=== PATIENT | male | born 1965 | race Caucasian/White ===

== ENCOUNTER 2022-12-19 09:09 | Outpatient (CLI) | payer BC, SELFPAY ==
[2022-12-19 12:42] LABS: Albumin* 4.3 g/dL (3.3-5.0)
[2022-12-19 12:43] LABS: Chloride* 102 mmol/L (96-114); Potassium* 4.6 mmol/L (3.6-5.1); Sodium* 137 mmol/L (135-149)
[2022-12-19 12:45] LABS: Aspartate Amino Transferase* 34 U/L (12-35); Bilirubin Total* 0.9 mg/dL (0.1-1.5); Carbon Dioxide* 29 mmol/L (20-32); Cholesterol* 156 mg/dL (90-199); Creatinine* 1.1 mg/dL (0.5-1.5); Estimated Glomerular Filt Rate 79 ml/min; Total Protein* 7.3 g/dL (6.0-8.3)
[2022-12-19 12:46] LABS: Alanine Aminotransferase* 39 U/L (4-50); Alkaline Phosphatase* 63 U/L (40-150); Blood Urea Nitrogen* 17 mg/dL (7-30); Calcium* 9.1 mg/dL (8.4-10.6); Glucose* 99 mg/dL (60-115); HDL Cholesterol* 70 mg/dL (>=40); LDL Cholesterol Calculated 78 mg/dL (<100); Triglycerides* 41 mg/dL (40-149)
[2022-12-19 13:16] LABS: PSA Screen* 0.92 ng/mL (0.10-4.00)
== END 2022-12-19 09:10 | disposition home or self-care (01) ==
PROVIDERS: PCP Physician Assistant Medical; Visit Provider Physician Assistant Medical
DX: Z00.00 Encounter for general adult medical examination without abnormal findings (principal); E78.2 Mixed hyperlipidemia; N40.1 Benign prostatic hyperplasia with lower urinary tract symptoms; N52.1 Erectile dysfunction due to diseases classified elsewhere; R35.1 Nocturia; E78.5 Hyperlipidemia, unspecified; Z12.5 Encounter for screening for malignant neoplasm of prostate
CPT/HCPCS: 80053; 80061; 84153

== ENCOUNTER 2023-12-23 09:09 | Outpatient (CLI) | payer BC, SELFPAY | END 2023-12-23 09:10 | disposition home or self-care (01) | PROVIDERS: PCP Physician Assistant Medical; Visit Provider Family Medicine | DX: E78.2 Mixed hyperlipidemia (principal); Z12.5 Encounter for screening for malignant neoplasm of prostate | CPT/HCPCS: 80053; 80061; G0103 ==

== ENCOUNTER 2025-04-20 08:01 | Outpatient (CLI) | payer BC, SELFPAY ==
--- OUTSIDE RECORDS SUMMARY | 2024-06-23 05:05 | XMS_ITS | Continuity of Care Document ---
Author Organization [facility] Address [address] [address] [place] [address] Phone Care Team Providers Care Hand Riveter Name Role Phone Teja Calderón MD, Reinier Unavailable Unavailabl e Allergies, Adverse Reactions, Alerts Substance Reaction Status Criticality No Known Allergies Active No Inform ation Medications Medication Instructions Dosage Effective Dates (start - stop) Status Comments Vazalore 81 mg capsule take 1 capsule by oral route every day 81 MG - Active omeprazole 20 mg capsule,delayed release take 1 capsule by oral route every day 30 minutes to 1 hour before a meal 20 MG - Active rosuvastatin 5 mg tablet take 1 tablet by oral route every day 5 MG - Active tadalafil 5 mg tablet take 3 tablet by o ral route every day as needed 15 MG - Active Procedures Procedure Date Colonoscopy Flex; Dx (sep Pro) 24 Ugi Endo; Dx W/wo Collec Specm 24 Office Cons New/estab Mod Routine Serum Collection Advance Directives Directive Yes / No Effective Date File Name No Information Encounters Encounter Description Practice Location Reason(s) For Visit Diagnoses Date Provider Providers Copied on Encounter [facility], [address] [address], [place], [id number], [place] tel:[phone] [facility] No Information 4 Teja Hills. [address], [place], [place], [id number] , [place]. [phone] [facility], [address] [address], [place], [id number], [place] tel:[phone] [facility] GI Symptoms or Concerns (chief complaint) Gastro-esophageal reflux disease without esophagitisRight lower quadrant painGastro-esopha geal reflux disease without esophagitisRight lower quadrant pain 4 En Huang. [address], [facility] [address], [place], [id number] , [place]. tel:[phone] Referring Provider: Erica Rubalcava MD, [address] [address], [place], [address]. tel:[phone] Office Cons New/estab Mod [facility], [address] [address], [place], [id number], [place] tel:[phone] [facility] GI Symptoms or Concerns (chief complaint) Right lower quadrant painChronic gastroesophageal reflux disease 4 Khadar Maldonado. [address], [facility] [address], [place], [id number] , [place]. [phone] Referring Provider: Tanvi Vanegas, [address] [place] [address], [address]. tel:[phone] [facility], [address] [address], [place], [id number], [place] tel:[phone] [facility] No Information 4 Teja [place]. [address], [facility] [address], [facility] [place], [place], [id number] , [place]. [phone] Family History Family Member Type Diagnosis Age At Onset Father Problem (finding) Cancer, prostate Immunizations Vaccine Date Status Comments SARS-COV-2 (COVID-19) vaccin e, mRNA, spike protein, LNP, preservative free, 50 mcg/0.5 mL dose administered Note: [facility] bi-direct ional interface ; Source: Other Registry zoster vaccine recombinant Dec-27-2022 administered N ote: [facility] bi-directional interface ; Source: Other Registry SARS-COV-2 (COVID-19) vaccin e, mRNA, spike protein, LNP, bivalent, preservative free, 50 mcg/0.5 mL or 25 mcg/0.25 mL dose administered Note: [facility] bi-direct ional interface ; Source: Other Registry zoster vaccine recombinant administered N ote: [facility] bi-directional interface ; Source: Other Registry SARS-COV-2 (COVID-19) vaccin e, mRNA, spike protein, LNP, preservative free, 100 mcg/0.5mL dose or 50 mcg/0.25mL dose administered Note: [facility] bi -directional interface ; Source: Other Registry tetanus toxoid, reduced diphtheria toxoid, and acellular pertussis vaccine, adsorbed administered Note: [facility] b i-directional interface ; Source: Other Registry Payers Payer name Insurance type Covered libertarian ID Authorlilia tishanice(s) [facility] [id number] Social History Type Description Quantity Date Captured Comments Sex Male Smoking Status No Information Chief Complaint And Reason For Visit No Information Reason For Referral Reason For Referral No Information Plan Of Treatment Date Type Action Status Referral Ordered: EGD Appointment date/timeframe: 06/09/2024 ordered Referral Ordered: Colonoscopy Appointment date/timeframe: 06/09/2024 ordered History Of Present Illness Encounter Date Complaint History Of Prese nt Illness GI Symptoms or Concerns GI Symptoms or Concerns Patient is a 58-year-old male seen in consultation at the request of his referring provider RAFITA Abarca, for evaluation of focal persistent right lower quadrant pain. He reports symptoms for the last couple of months. The pain is generally present but varies in intensity up to a 6/10. He denies any association with p.o. intake bowel movements or movement. He denies any change in bowel patterns he denies diarrhea or constipation. He reports a daily soft stool and feels that he empties. He denies blood in the stool he denies weight loss. His last colonoscopy was about 7 years ago performed elsewhere he reports it was normal. He denies any bloating or excess gas. He denies any history of abdominal surgeries. He has a history of reflux which he has had for many years and has been controlled on omeprazole. He denies dysphagia. He has never had an upper scope. He had a CT of the abdomen pelvis for evaluation of his right lower quadrant pain earlier this month which was unremarkable. Functional Status Date Functional Assessmen t No Information Instructions Date Instruction Additional Infor miguel Colon Cancer Prevention Related to Right lower quadrant pain 1.check celiac lab t est2. Colonoscopy with TI evaluation3. EGD to evaluate for Gallegos's4. f/u after tests Related to Chronic gastroesophageal reflux disease Assessments Type Assessment Date No Information Patient Care Teams Name Effective Dates (start - stop) Status Members No Information
--- NOTE | 2025-04-20 08:15 | MR_ITS ---
[facility] [address] [address] Phone:[phone] Fax:?[phone] Referring Physician Information: Milli De Leon [address] [facility] [address] Phone:?[phone] Fax:[phone] Patient:Prudencio Spencer D.O.B:?1965 Sex:?Male Phone:?[phone] [facility] MRN:?[id number] Exam Date:?04/20/2025 EXAM: MRI OF THE LEFT WRIST, WITHOUT CONTRAST CLINICAL: Left wrist pain. Evaluate for tendon injury or osseous abnormality. COMPARISONS: X-rays 03/08/2025. TECHNICAL: Multiplanar multisequence MRI of the left wrist was obtained. SEDATION: None. CONTRAST: None. FINDINGS: Joints/Osseous structures: There is bone marrow edema and small degenerative cystic change involving the proximal ulnar aspect of the lunate. Minimal marrow edema involving the proximal capitate at the articulation with the lunate is likely reflective of degenerative change. No evidence of acute osseous fracture, subluxation or dislocation. No significant joint effusion. TFCC: There is focal full-thickness perforation/tear involving the triangular fibrocartilage disc proper on coronal series 5 image 11. There is mild partial tearing of the ulnar fibers of the remainder of the triangular fibrocartilage complex. Ligaments: Scapholunate: No sprain/tear. Lunotriquetral: No sprain/tear. Tendons: Flexors: Intact without significant tendinosis or tenosynovitis. Extensors: ECU & 6th extensor compartment: No significant tendinosis, tear or tenosynovitis. 1st - 5th extensor compartments: There is high-grade tearing/disruption of the extensor pollicis longus tendon as it courses along the dorsal aspect of the extensor carpi radialis longus tendon on axial series 4 images 18-20. Advanced tendinosis and ill-defined partial tearing of the more distal tendon on axial series 4 image 22-28 with advanced tendinosis and ill-defined partial tearing also involving the more proximal tendon on axial series 4 images 1-13. Remaining extensor tendons appear intact. There is mild fluid adjacent to the imaged extensor pollicis brevis tendon as it courses along the first CMC joint and imaged proximal first metacarpal. There is increased edema involving the dorsal as well as involving the radial wrist subcutaneous soft tissues. Neurovascular: Median: Unremarkable carpal tunnel without convincing neuritis or intrinsic/extrinsic masses. Ulnar: Unremarkable Guyon's canal without intrinsic/extrinsic masses. IMPRESSION: 1. High-grade tearing/disruption of the extensor pollicis longus tendon as it courses along the dorsal aspect of the extensor carpi radialis brevis tendon. Advanced tendinosis and ill-defined partial tearing involving the tendon proximal and distal to the site of tendon rupture. 2. Mild fluid about the extensor pollicis brevis tendon as it courses along the first CMC joint and imaged proximal first metacarpal. There is increased edema involving the dorsal and radial wrist subcutaneous soft tissues. 3. Focal full-thickness perforation/tear involving the triangular fibrocartilage disc proper. Mild partial tearing also involves the ulnar fibers of the remainder of the TFCC. 4. Bone marrow edema and small degenerative cystic change involving the proximal ulnar lunate can be seen in patients with ulnar impaction syndrome. JCZ Electronically signed on 04/20/2025 10:38:00 AM by Danny Cisneros D.O.
--- OUTSIDE RECORDS SUMMARY | 2025-04-21 00:44 | XMS_ITS | Data Portability ---
Author Organization [facility], [facility] Address [address] [place] [address] Assessment No assessment recorded. Plan of Treatment Reminders Order Date Submit Date Provider Last Modified By Organization Details Last Modified Time Details Appointments None recorded. Lab urinalysis, dipstick 2022 023 [facility], [address], [place], [address], 3 15:45:30 urinalysis, microscopic 2022 023 [facility], [address], [address], [place], [address], 3 15:45:33 urinalysis, dipstick 2021 022 [facility], [address], [address], [place], [address], 2 15:16:48 urinalysis, dipstick 2021 022 [facility], [address], [address], [place], [address], 2 17:11:13 urinalysis, dipstick 2021 022 [facility], [address], [address], [place], [address], 2 14:27:03 culture, urine 2021 022 [facility], [address], [address], [place], [address], 08:53:20 Referral None recorded. Procedures None recorded. Surgeries None recorded. Imaging None recorded. Medication Orders None recorded. Patient TargetsNo targets recorded. Patient Instructions Encounter Date Encounter Id Patient Instructions Last Modified By Organization Details Last Modified Time 04/14/2022 [id number] BPH s/p TURP -Patient passed voiding trial this morning. -Instructed patient to stay well-hydrated and avoid constipation. -If unable to urinate by the end of the day, instructed patient to return to the clinic. If after clinic hours, instructed to go to urgent care or the emergency department. -Monitor for symptoms of urinary retention including abdominal pain/pressure or distension, inability to urinate for 4-6 hours, dribbling or only urinating drops, or feeling of incomplete emptying. -Follow-up ~[address] Gold. [email or web address] Not available 04/13/2022 16:13:45 05/16/2022 [id number] BPH/weak stream: He's doing well after the procedure. I'll see him back in 3 months. Not available 05/16/2022 16:34:54 08/20/2022 [id number] BPH/weak stream/frequency: He's doing well and without any changes (worsening) to his voiding since I saw him last. He's getting his PSAs with his PCP office. I recommend that I see him back in 1 year. Not available 08/20/2022 15:06:16 08/26/2023 [id number] BPH/weak stream: He's voiding well since the TURP. At this point, I'll see him as needed. He's is getting his PSA checked by other providers. Not available 08/26/2023 15:25:06 Reason for Referral None Reported. Results Created Date Observation Date Name Description Value Unit Range Abnormal Flag Note LastModifiedBy Organization Detail LastModifiedTime 04/01/20 22 04/01/2022 UA DIP CS ADVAN TUS color -advantus YELLOW yellow Not Available [facility] [address], [place], [address], 04/01/2022 14:27:03 04/01/20 22 04/01/2022 UA DIP CS ADVAN TUS appearance -advantus CLEAR clear Not Available [facility] [address], [place], [address], 04/01/2022 14:27:03 04/01/20 22 04/01/2022 UA DIP CS ADVAN TUS glucose -advantus NEGATI VE mg/dL negati ve Not Available [facility] [address] [place] [address] [address], [place], [address], 04/01/2022 14:27:03 04/01/20 22 04/01/2022 UA DIP CS ADVAN TUS bilirubin -advantus NEGATI VE negati ve Not Available [facility] [address] [place] [address] [address], [place], [address], 04/01/2022 14:27:03 04/01/20 22 04/01/2022 UA DIP CS ADVAN TUS ketones -advantus TRACE mg/dL negati ve abnormal Not Available [facility] [address] [place] [address] [address], [place], [address], 04/01/2022 14:27:03 04/01/20 22 04/01/2022 UA DIP CS ADVAN TUS sp. gravity -advantus 1.025 1.010- 1.025 Not Available [facility] [address] [place] [address], [place], [address], 04/01/2022 14:27:03 04/01/20 22 04/01/2022 UA DIP CS ADVAN TUS pH -advantus 6.0 5.0-8. 0 Not Available [facility] [address] [place] [address], [place], [address], 04/01/2022 14:27:03 04/01/20 22 04/01/2022 UA DIP CS ADVAN TUS protein -advantus NEGATI VE mg/dL negati ve Not Available [facility] [address] [facility] [address], [place], [address], 04/01/2022 14:27:03 04/01/20 22 04/01/2022 UA DIP CS ADVAN TUS urobilinogen -advantus 1.0 normal Not Available [facility] [address], [place], [address], 04/01/2022 14:27:03 04/01/20 22 04/01/2022 UA DIP CS ADVAN TUS nitrites -advantus NEGATI VE negati ve Not Available [facility] [address] [place] [address] [address], [place], [address], 04/01/2022 14:27:03 04/01/20 22 04/01/2022 UA DIP CS ADVAN TUS blood -advantus NEGATI VE negati ve Not Available [facility] [address] [place] [address], [place], [address], 04/01/2022 14:27:03 04/01/20 22 04/01/2022 UA DIP CS ADVAN TUS leukocytes -advantus NEGATI VE negati ve Not Available [facility] [address] [place] [address] [address], [place], [address], 04/01/2022 14:27:03 04/01/20 22 04/01/2022 UA DIP CS ADVAN TUS performed by Best Garcia Not Available [facility] [address] [facility] [address], [place], [address], 04/01/2022 14:27:03 04/01/20 22 04/01/2022 UA DIP CS ADVAN TUS total urine volume (mL) 80cc /mL ----- ----- ----- ----- ----- ----- ----- ----- ----- ----- ----- ----- ----- ----- ---- *Trish nice note the follo wing minim um quant ities for addit ional urine testi ng: - Atypi cals: 3 mL - Cytol ogy: 20 mL - GC/CH : 2 mL - FISH: 30 mL - Atypi cals w/ GC/CH : 5 mL - Cytol ogy PLUS FISH: 50 mL - Urine Cultu re: 3 mL ----- ----- ----- ----- ----- ----- ----- ----- ----- ----- ----- ----- ----- ----- ---- Not Available [facility] [address], [place], [address], 04/01/2022 14:27:03 04/01/20 22 04/01/2022 URINE CULTU RE final report Microb iology result s SOURC E Void KNOWN ALLER GIES NKDA TREAT MENT none MEDIA PLATE D AT: Media plate d on 2021 @ 1:24 PM COLON Y COUNT < 10,00 0 cfu/m l RESUL T No Furth er Mathew p Not Available [facility] [address], [place], [address], 04/03/2022 08:53:20 05/16/20 22 05/16/2022 UA DIP CS ADVAN TUS color -advantus YELLOW yellow Not Available [facility] [address], [place], [address], 05/16/2022 17:11:12 05/16/20 22 05/16/2022 UA DIP CS ADVAN TUS appearance -advantus CLEAR clear Not Available [facility] [address], [place], [address], 05/16/2022 17:11:12 05/16/20 22 05/16/2022 UA DIP CS ADVAN TUS glucose -advantus NEGATI VE mg/dL negati ve Not Available [facility] [address] [place] [address], [place], [address], 05/16/2022 17:11:12 05/16/20 22 05/16/2022 UA DIP CS ADVAN TUS bilirubin -advantus NEGATI VE negati ve Not Available [facility] [address] [place] [address], [place], [address], 05/16/2022 17:11:12 05/16/20 22 05/16/2022 UA DIP CS ADVAN TUS ketones -advantus TRACE mg/dL negati ve abnormal Not Available [facility] [address] [place] [address], [place], [address], 05/16/2022 17:11:12 05/16/20 22 05/16/2022 UA DIP CS ADVAN TUS sp. gravity -advantus 1.020 1.010- 1.025 Not Available [facility] [address] [place] [address] [address], [place], [address], 05/16/2022 17:11:12 05/16/20 22 05/16/2022 UA DIP CS ADVAN TUS pH -advantus 6.0 5.0-8. 0 Not Available [facility] [address] [place] [address] [address], [place], [address], 05/16/2022 17:11:12 05/16/20 22 05/16/2022 UA DIP CS ADVAN TUS protein -advantus 30 mg/dL negati ve abnormal Not Available [facility] [address] [place] [address], [place], [address], 05/16/2022 17:11:12 05/16/20 22 05/16/2022 UA DIP CS ADVAN TUS urobilinogen -advantus 0.2 normal Not Available [facility] [address] [place] [address], [place], [address], 05/16/2022 17:11:12 05/16/20 22 05/16/2022 UA DIP CS ADVAN TUS nitrites -advantus NEGATI VE negati ve Not Available [facility] [address] [facility] [address], [place], [address], 05/16/2022 17:11:12 05/16/20 22 05/16/2022 UA DIP CS ADVAN TUS blood -advantus LARGE negati ve abnormal Not Available [facility] [address] [facility] [address], [place], [address], 05/16/2022 17:11:12 05/16/20 22 05/16/2022 UA DIP CS ADVAN TUS leukocytes -advantus LARGE negati ve abnormal Not Available [facility] [address] [facility] [address], [place], [address], 05/16/2022 17:11:12 05/16/20 22 05/16/2022 UA DIP CS ADVAN TUS performed by Maile Dias Not Available [facility] [address] [facility] [address], [place], [address], 05/16/2022 17:11:12 05/16/20 22 05/16/2022 UA DIP CS ADVAN TUS total urine volume (mL) 60 /mL ----- ----- ----- ----- ----- ----- ----- ----- ----- ----- ----- ----- ----- ----- ---- *Trish nice note the follo wing minim um quant ities for addit ional urine testi ng: - Atypi cals: 3 mL - Cytol ogy: 20 mL - GC/CH : 2 mL - FISH: 30 mL - Atypi cals w/ GC/CH : 5 mL - Cytol ogy PLUS FISH: 50 mL - Urine Cultu re: 3 mL ----- ----- ----- ----- ----- ----- ----- ----- ----- ----- ----- ----- ----- ----- ---- Not Available [facility] [address] [place] [address], [place], [address], 05/16/2022 17:11:12 05/16/20 22 05/16/2022 UA MICRO SCOPI C U-WBC 50 - 100 [hpf] 0 - 2 abnormal Not Available [facility] [address] [place] [address], [place], [address], 05/16/2022 17:11:14 05/16/20 22 05/16/2022 UA MICRO SCOPI C U-RBC 2 - 5 [hpf] 0 - 2 abnormal Not Available [facility] [address] [place] [address] [address], [place], [address], 05/16/2022 17:11:14 05/16/20 22 05/16/2022 UA MICRO SCOPI C bacteria Modera te [hpf] negati ve abnormal Not Available [facility] [address] [place] [address], [place], [address], 05/16/2022 17:11:14 05/16/20 22 05/16/2022 UA MICRO SCOPI C squamous epi Negati ve /lpf negati ve,sma ll Not Available [facility] [address] [place] [address], [place], [address], 05/16/2022 17:11:14 08/20/20 22 08/20/2022 UA DIP CS ADVAN TUS color -advantus YELLOW yellow Not Available [facility] [address] [place] [address], [place], [address], 08/20/2022 15:16:48 08/20/20 22 08/20/2022 UA DIP CS ADVAN TUS appearance -advantus CLEAR clear Not Available [facility] [address] [facility] [address], [place], [address], 08/20/2022 15:16:48 08/20/20 22 08/20/2022 UA DIP CS ADVAN TUS glucose -advantus NEGATI VE mg/dL negati ve Not Available [facility] [address] [place] [address], [place], [address], 08/20/2022 15:16:48 08/20/20 22 08/20/2022 UA DIP CS ADVAN TUS bilirubin -advantus NEGATI VE negati ve Not Available [facility] [address] [place] [address], [place], [address], 08/20/2022 15:16:48 08/20/20 22 08/20/2022 UA DIP CS ADVAN TUS ketones -advantus NEGATI VE mg/dL negati ve Not Available [facility] [address] [place] [address], [place], [address], 08/20/2022 15:16:48 08/20/20 22 08/20/2022 UA DIP CS ADVAN TUS sp. gravity -advantus 1.025 1.010- 1.025 Not Available [facility] [address] [place] [address] [address], [place], [address], 08/20/2022 15:16:48 08/20/20 22 08/20/2022 UA DIP CS ADVAN TUS pH -advantus 6.0 5.0-8. 0 Not Available [facility] [address] [place] [address], [place], [address], 08/20/2022 15:16:48 08/20/20 22 08/20/2022 UA DIP CS ADVAN TUS protein -advantus NEGATI VE mg/dL negati ve Not Available [facility] [address] [place] [address], [place], [address], 08/20/2022 15:16:48 08/20/20 22 08/20/2022 UA DIP CS ADVAN TUS urobilinogen -advantus 0.2 normal Not Available [facility] [address], [place], [address], 08/20/2022 15:16:48 08/20/20 22 08/20/2022 UA DIP CS ADVAN TUS nitrites -advantus NEGATI VE negati ve Not Available [facility] [address] [place] [address], [place], [address], 08/20/2022 15:16:48 08/20/20 22 08/20/2022 UA DIP CS ADVAN TUS blood -advantus NEGATI VE negati ve Not Available [facility] [address] [place] [address], [place], [address], 08/20/2022 15:16:48 08/20/20 22 08/20/2022 UA DIP CS ADVAN TUS leukocytes -advantus NEGATI VE negati ve Not Available [facility] [address] [place] [address], [place], [address], 08/20/2022 15:16:48 08/20/20 22 08/20/2022 UA DIP CS ADVAN TUS performed by YOLIS Yeboah Not Available [facility] [address] [place] [address], [place], [address], 08/20/2022 15:16:48 08/20/20 22 08/20/2022 UA DIP CS ADVAN TUS total urine volume (mL) 90 /mL ----- ----- ----- ----- ----- ----- ----- ----- ----- ----- ----- ----- ----- ----- ---- *Plea se note the follo wing minim um quant ities for addit ional urine testi ng: - Atypi cals: 3 mL - Cytol ogy: 20 mL - GC/CH : 2 mL - FISH: 30 mL - Atypi cals w/ GC/CH : 5 mL - Cytol ogy PLUS FISH: 50 mL - Urine Cultu re: 3 mL ----- ----- ----- ----- ----- ----- ----- ----- ----- ----- ----- ----- ----- ----- ---- This lab resul t is being provi ded to you and your provi cordell at the same time in compl iance with the Centu ry Cures Act. Your provi cordell may not have had time to revie w and make recom menda tions based on the resul t. Eulalia recio allow up to one week for provi cordell revie w. Not Available [facility] [address] [place] [address], [place], [address], 08/20/2022 15:16:48 08/26/20 23 08/26/2023 UA WITHO UT MICRO - CS URISC AN blood - uriscan TRACE negati ve abnormal Not Available [facility] [address] [place] [address], [place], [address], 08/26/2023 15:45:30 08/26/20 23 08/26/2023 UA WITHO UT MICRO - CS URISC AN bilirubin - uriscan NEGATI VE mg/dL negati ve Not Available [facility] [address] [place] [address], [place], [address], 08/26/2023 15:45:30 08/26/20 23 08/26/2023 UA WITHO UT MICRO - CS URISC AN urobilinogen - uriscan 1.0 mg/dL normal abnormal Not Available [facility] [address] [facility] [address], [place], [address], 08/26/2023 15:45:30 08/26/20 23 08/26/2023 UA WITHO UT MICRO - CS URISC AN ketones - uriscan NEGATI VE mg/dL negati ve Not Available [facility] [address] [facility] [address], [place], [address], 08/26/2023 15:45:30 08/26/20 23 08/26/2023 UA WITHO UT MICRO - CS URISC AN protein - uriscan NEGATI VE mg/dL negati ve Not Available [facility] [address] [place] [address], [place], [address], 08/26/2023 15:45:30 08/26/2008/26/2023 UA WITHO UT MICRO - CS URISC AN nitrites - uriscan NEGATI VE negati ve Not Available [facility] [address] [place] [address], [place], [address], 08/26/2023 15:45:30 08/26/2008/26/2023 UA WITHO UT MICRO - CS URISC AN glucose - uriscan NEGATI VE mg/dL negati ve Not Available [facility] [address] [place] [address] [address], [place], [address], 08/26/2023 15:45:30 08/26/20 23 08/26/2023 UA WITHO UT MICRO - CS URISC AN pH - uriscan 7.00 5.00-9 .00 Not Available [facility] [address] [place] [address], [place], [address], 08/26/2023 15:45:30 08/26/20 23 08/26/2023 UA WITHO UT MICRO - CS URISC AN sp. gravity - uriscan <=1.01 1.01-1 .03 Not Available [facility] [address] [place] [address], [place], [address], 08/26/2023 15:45:30 08/26/20 23 08/26/2023 UA WITHO UT MICRO - CS URISC AN leukocytes - uriscan NEGATI VE negati ve Not Available [facility] [address] [facility] [address], [place], [address], 08/26/2023 15:45:30 08/26/20 23 08/26/2023 UA WITHO UT MICRO - CS URISC AN color - uriscan YELLOW lt. yellow ;yello w Not Available [facility] [address] [facility] [address], [place], [address], 08/26/2023 15:45:30 08/26/20 23 08/26/2023 UA WITHO UT MICRO - CS URISC AN clarity - uriscan CLEAR clear Not Available [facility] [address] [facility] [address], [place], [address], 08/26/2023 15:45:30 08/26/20 23 08/26/2023 UA WITHO UT MICRO - CS URISC AN total urine volume (mL) 90 /mL ----- ----- ----- ----- ----- ----- ----- ----- ----- ----- ----- ----- ----- ----- ---- *Trish nice note the follo wing minim um quant ities for addit ional urine testi ng: - Atypi cals: 3 mL - Cytol ogy: 20 mL - GC/CH : 2 mL - FISH: 30 mL - Atypi cals w/ GC/CH : 5 mL - Cytol ogy PLUS FISH: 50 mL - Urine Cultu re: 3 mL ----- ----- ----- ----- ----- ----- ----- ----- ----- ----- ----- ----- ----- ----- ---- This lab resul t is being provi ded to you and your provi cordell at the same time in compl iance with the Centu ry Cures Act. Your provi cordell may not have had time to revie w and make recom menda tions based on the resul t. Pleas e allow up to one week for provi cordell revie w. Not Available [facility] [address], [place], [address], 08/26/2023 15:45:30 08/26/2008/26/2023 UA MICRO SCOPI C U-WBC 0 - 2 [hpf] 0 - 2 Not Available [facility] [address], [place], [address], 08/26/2023 15:45:33 08/26/2008/26/2023 UA MICRO SCOPI C U-RBC 0 - 2 [hpf] 0 - 2 Not Available [facility] [address] [facility] [address], [place], [address], 08/26/2023 15:45:33 08/26/20 23 08/26/2023 UA MICRO SCOPI C bacteria NEGATI VE [hpf] negati ve Not Available [facility] [address] [facility] [address], [place], [address], 08/26/2023 15:45:33 08/26/2008/26/2023 UA MICRO SCOPI C squamous epi SMALL /lpf negati ve,sma ll This lab resul t is being provi ded to you and your provi cordell at the same time in compl iance with the Centu ry Cures Act. Your provi cordell may not have had time to revie w and make recom menda tions based on the resul t. Pleas e allow up to one week for provi cordell revie w. Not Available [facility] [address] [facility] [address], [place], [address], 08/26/2023 15:45:33 Result Notes None recorded. Problems Name Problem SNOMED Code Status Onset Date Resolution Date Notes Provider Name and Address Organization Details Recorded Time Slowing of urinary stream 82870850 Active 2021 Tab Gold MD [address] [place] [address],[address], [place], [address], [place] [facility] 2 09:36:57 Lower urinary tract symptoms due to benign prostatic hypertrophy 9674674307598 1 Active 2021 Tab Gold MD [address] [facility],[address], [place], [address], [place] [facility] 2 09:36:57 Increased frequency of urination 771868316 Active 2021 Tab Gold MD [address] [place] [address],[address], [place], [address], [place] [facility] 2 09:36:58 Benign prostatic hyperplasia with outflow obstruction 774434990 Active 2021 Tab Gold MD [address] [place] [address],[address], [place], [address], [place] [facility] 2 15:05:41 Problem Notes None recorded. Procedures Surgical History Date Name Laterality Status Provider Name and Address Organization Details Recorded Time 08/26/20 23 Bladder Scan completed Graciela Barrera [facility] 08/26/2023 15:12:49 08/20/20 22 Bladder Scan completed Elisabeth Porter [facility] 08/20/2022 14:58:51 05/16/20 22 Bladder Scan completed Milvia Oneill [facility] 05/16/2022 16:29:01 04/14/20 22 Fill and Pull/Voiding Trial/TOV completed Richa Smith [facility] 04/14/2022 10:48:57 04/01/20 22 Urine Culture completed Noemí Csotello [facility] 04/01/2022 14:20:12 04/01/20 22 Urinalysis completed Noemí Costello [facility] 04/01/2022 14:20:10 02/22/20 22 Cystoscopy- male completed Tab Gold MD [address] [facility],[address], [place], [address], [place] [facility] 02/21/2022 09:36:36 02/22/20 22 Bladder Scan completed Milvia Oneill [facility] 02/21/2022 09:17:13 09/23/20 17 Diagnostic colonoscopy completed Not Available [facility] 08/18/2022 15:39:35 Removal of sperm duct(s) completed Not Available [facility] Note 08/18/2022 15:39:35 Prostatectomy (turp) completed Not Available [facility] Note 08/18/2022 15:39:35 Imaging Results None recorded. Procedure Notes None recorded. Medical Equipment None Reported. Allergies No known drug allergies Medications Name Sig Start Date Stop Date Status Note LastModified by Organization Details LastModified Time BD Insulin Syringe 1 mL 25 x 1 USE DIRECTED FOR TESTOSTE [employer] [employer] active Not Available Not Available No t Available hydrocodo ne 5 mg-acetam inophen 325 mg tablet 05/16 completed HN: Patient reports no longer taking Not Available Not Available Not Available ciproflox acin 500 mg tablet TAKE 1 TABLET BY MOUTH TWICE A DAY 02/21 completed Not Available Not Available Not Available BD Regular Bevel Minto 18 gauge x 1 USE FOR DRAWING UP TESTOSTE [facility] CYPIONAT E active Not Available Not Available No t Available Hypodermi c Minto 18 gauge x 1 1/2 USE FOR DRAWING UP TESTOSTE [facility] CYPIONAT E active Not Available Not Available No t Available tamsulosi n 0.4 mg capsule TAKE 1 CAPSULE EVERY DAY 05/16 completed HN: Patient reports no longer taking Not Available Not Available Not Available omeprazol e 20 mg capsule,d elayed release TAKE 1 CAPSULE BY MOUTH DAILY. active Not Available Not Available No t Available BD Tuberculi n Syringe 1 mL 25 gauge x 5/8 USE DIRECTED FOR [employer]OSTE [employer] active Not Available Not Available No t Available testoster one cypionate 200 mg/mL intramusc ular oil 05/10.IN JECT 0.85ML SUBCUTAN EOUS ONCE WEEKLY active Not Available Not Available No t Available ketoconaz ole 2 % topical cream APPLY TOPICALL Y TO AFFECTED AREA TWICE DAILY X 3 WEEKS 02/21 completed Not Available Not Available Not Available rosuvasta tin 5 mg tablet TAKE 1 TABLET BY MOUTH DAILY AT BEDTIME. active Not Available Not Available No t Available tadalafil 5 mg tablet TAKE 1 TABLET BY MOUTH DAILY NEEDED FOR SEXUAL ACTIVITY . active Not Available Not Available No t Available aspirin 81mg 1/day 08/20 completed Not Available Not Available Not Available tamsulosi n .8mg 1/day 02/21 completed Not Available Not Available Not Available tadalafil 2.5 mg tablet 5mg 1/day 02/21 completed Not Available Not Available Not Available rosuvasta tin 5 mg sprinkle capsule 5mg 1/day 02/21 completed Not Available Not Available Not Available Vitals Date Recorded Body height Body mass index (BMI) Body weight Provider Name and Address Organization Details Last Updated DateTime 04/14/2022 187.96 cm 27 kg/m2 26003.86 g Richa Smith [facility] 04/14/2022 10:33:52 Date Recorded Body height Body mass index (BMI) Body weight Provider Name and Address Organization Details Last Updated DateTime 05/16/2022 187.96 cm 26.8 kg/m2 26931.81 g Timoteo Hernandes [facility] 05/16/2022 16:23:26 Date Recorded Body height Body weight Body mass index (BMI) Provider Name and Address Organization Details Last Updated DateTime 08/20/2022 187.96 cm 24080.10266 81240 g 27 kg/m2 Not Available Health Note 08/20/2022 14:44:16 Date Recorded Body mass index (BMI) Body weight Body height Provider Name and Address Organization Details Last Updated DateTime 08/26/2023 27 kg/m2 05035.77648 72311 g 187.96 cm Not Available Health Note 08/26/2023 15:00:29 Social History Question Answer Notes LastModified by Organizat ion Details LastModified Time Tobacco Smoking Status Former Smoker Not Available Health Note 08/22/2023 19:20:13 What Is Your Level Of Caffeine Consumption? Moderate [email or web address] Information not available 08/22/2023 How Much Tobacco Do You Chew? None [email or web address] Information not available 08/22/2023 When Did You Quit Smoking? 6 - 10 Years Since Last Cigarette [email or web address] Information not available 08/22/2023 What Was The Date Of Your Most Recent Tobacco Screening? 08/26/2023 [email or web address] Information not available 08/22/2023 What Is Your Relationship Status? [email or web address] Information not available 08/22/2023 Are You Sexually Active? Yes [email or web address] Information not available 08/22/2023 Has Tobacco Cessation Counseling Been Provided? Yes Information not available 02/21/2022 On What Date Was Tobacco Cessation Counseling Provided? 08/20/2022 [email or web address] Information not available 08/20/2022 How Many Years Have You Smoked Tobacco? 5 [email or web address] Information not available 08/22/2023 How Many Days In The Past Year Have You Consumed 5 Or More Drinks? 5 [email or web address] Information no t available 08/22/2023 Sex: Unknown Functional Status Question Answer Note LastModified by Organizat ion Details LastModified Time Do you use any illicit or recreational drugs? No [email or web address] Information not available 08/22/2023 Do you or have you ever used any other forms of tobacco or nicotine? No [email or web address] Information not available 04/14/2022 What is your level of alcohol consumption? Occasional [email or web address] Information not available 08/22/2023 Do you or have you ever used smokeless tobacco? Former smokeless tobacco user [email or web address] Information not available 08/22/2023 Do you or have you ever used e-cigarettes or vape? Never used electronic cigarettes [email or web address] Information not available 08/22/2023 Mental Status None recorded. Family History Relationship Description Onset Age of this Age Resolved Age Notes LastModified by Organization Details LastModified Time Father Family history of malignant neoplasm of prostate 45 [email or web address] Not available 2021 09:48:22 Medical History Condition Response Sexually Transmitted Infection N Diabetes N Bleeding Disorder N High Blood Pressure N Kidney Stones N Cancer N Lung Disease N Depression N High Cholesterol N GERD/Acid Reflux Y Heart Disease N Immunizations Vaccine Type Date Status Note Provider Nam e and Address Organization Details Recorded Time SARS-COV-2 (COVID-19) vaccine, UNSPECIFIED 2 completed Not Available [facility] 08/20/2022 14:37:27 COVID-19, mRNA, LNP-S, PF, 100 mcg/0.5mL dose or 50 mcg/0.25mL dose 1 completed CLAUDINE Card [facility] 02/21/2022 09:14:30 Tdap 0 completed CLAUDINE Card [facility] 02/21/2022 09:14:30 Td (adult), 2 Lf tetanus toxoid, preservative free, adsorbed 1 completed Milvia Oneill parul [facility] 02/21/2022 09:14:30 SARS-COV-2 (COVID-19) vaccine, UNSPECIFIED 1 completed Not Available [facility] 08/20/2022 14:37:28 SARS-COV-2 (COVID-19) vaccine, UNSPECIFIED 2 completed Not Available [facility] 08/20/2022 14:37:28 SARS-COV-2 (COVID-19) vaccine, UNSPECIFIED 3 completed Not Available Health Note 08/22/2023 19:20:17 Past Encounters Encounter ID Performer Location Encounter Start Date Encounter Closed Date Diagnosis/Indication Diagnosis SNOMED-CT Code Diagnosis ICD10 Code Diagnosis Note [id number] MD Ahmet Sellers [address] [place] [phone] 0 02/21/2022 09:07:00 02/21/2022 10:35:49 Increased frequency of urination 063785037 R35.0 Lower urin abbie tract symptoms due to benign prostatic hypertrophy 9160907193 9101 N40.1 Slowing of urinary stream 41926937 R39.12 [id number] MD Ahmet Sellers [address] [place] [phone] 0 04/01/2022 14:16:20 04/01/2022 14:22:05 Benign prostatic hyperplasia with outflow obstruction 901605060 N40.1 [id number] JEANNINE Payne [address] [place] [address] [id number] 0 04/14/2022 10:32:01 04/14/2022 11:23:58 Lower urinary tract symptoms due to benign prostatic hypertrophy 1161119950 9101 N40.1 [id number] MD Ahmet Sellers [address] [place] [address] [phone] 0 05/16/2022 16:21:43 05/16/2022 16:37:49 Benign prostatic hyperplasia with outflow obstruction 142221065 N40.1 Slowing of urinary stream 03815576 R39.12 [id number] MD Akira Sellersro[facility] [address] [place] [address],[address] [place] [address] 08/20/2022 14:36:02 08/20/2022 15:09:07 Benign prostatic hyperplasia with outflow obstruction 278904260 N40.1 Slowing of urinary stream 21567310 R39.12 Increased frequency of urination 233624248 R35.0 [id number] MD Izabella Sellers[facility] [address] [place] [address],[address] [place] [address] 08/26/2023 14:59:14 08/26/2023 15:44:21 Benign prostatic hyperplasia with outflow obstruction 995109768 N40.1 Slowing of urinary stream 53238273 R39.12 Health Concerns Section Related Observation LastModified by Organization Detai ls LastModified Time None Recorded Concern Status LastModified by Organization Details LastModified Time None Recorded Advance Directives Directive None Recorded Payers Insurance Date Sequence Insurance Name Policy Number Policy Doherty Covered Member ID Doherty Member ID Guarantor Name 09/14/2023 1 [place] [id number] Allen Spencer [id number] Allen Spencer Notes Date Note Type Note Provider Name and Address Organization Details Recorded Time 04/14/2022 text/html 56 year old male here for voiding trial s/p TURP on 04/11/22. He is doing well overall, no new concerns. Denies abdominal pain. Pathology: processing Rhonda Trejo PA-C [id number] [facility] [address] [facility],[address], [place], [address], [facility] 04/14/2022 10:53:20 05/16/2022 text/html 02/21/22: Anxiety , HLD, GERD, ED, low testosterone.IPSS = 26. PVR = 37 mL. Has frequency. He strains to start his stream. Force of stream not very strong. He feels that he empties but has to void again in 30-45 minutes. Nocturia 2-3x/night. No dysuria. No gross hematuria. He is currently on Flomax for the last 4 years and he doesn't feel that it's helped at any time. He states that he had a PSA via [facility] in December 2021 and he states that his physician was not concerned about it. 05/16/22: S/p bipolar TURP 04/11/22. Pathology = 13 grams, no cancer. Passed voiding trial with RAFITA Payne on 04/14/22.Here for follow up. PVR = 0 mL. IPSS = 7. When I go, I go. Force of stream is way better. Empties well and doesn't strain to start his stream. Nocturia 1x/night. SH - Never smokerFH - Father = prostate cancer (dx'd in his 60s); no bladder or renal cancer. Tab Gold MD [address] [place] [address],[address], [place], [address], [facility] 05/16/2022 16:35:13 08/20/2022 text/html 02/21/22: Anxiety , HLD, GERD, ED, low testosterone.IPSS = 26. PVR = 37 mL. Has frequency. He strains to start his stream. Force of stream not very strong. He feels that he empties but has to void again in 30-45 minutes. Nocturia 2-3x/night. No dysuria. No gross hematuria. He is currently on Flomax for the last 4 years and he doesn't feel that it's helped at any time. He states that he had a PSA via [facility] in December 2021 and he states that his physician was not concerned about it. 05/16/22: S/p bipolar TURP 04/11/22. Pathology = 13 grams, no cancer. Passed voiding trial with RAFITA Payne on 04/14/22.Here for follow up. PVR = 0 mL. IPSS = 7. When I go, I go. Force of stream is way better. Empties well and doesn't strain to start his stream. Nocturia 1x/night. 08/20/22: Here for follow up.IPSS = 3. PVR = 0 mL. He's having good improvement since surgery. Nothing is worse. No dysuria or gross hematuria. He has no concerns with voiding at this point. SH - Never smokerFH - Father = prostate cancer (dx'd in his 60s); no bladder or renal cancer. Tab Gold MD [address], [place], [address], [facility] 08/20/2022 15:06:40 08/26/2023 text/html 02/21/22: Anxiety , HLD, GERD, ED, low testosterone.IPSS = 26. PVR = 37 mL. Has frequency. He strains to start his stream. Force of stream not very strong. He feels that he empties but has to void again in 30-45 minutes. Nocturia 2-3x/night. No dysuria. No gross hematuria. He is currently on Flomax for the last 4 years and he doesn't feel that it's helped at any time. He states that he had a PSA via [facility] in December 2021 and he states that his physician was not concerned about it. 05/16/22: S/p bipolar TURP 04/11/22. Pathology = 13 grams, no cancer. Passed voiding trial with RAFITA Payne on 04/14/22.Here for follow up. PVR = 0 mL. IPSS = 7. When I go, I go. Force of stream is way better. Empties well and doesn't strain to start his stream. Nocturia 1x/night. 08/20/22: Here for follow up.IPSS = 3. PVR = 0 mL. He's having good improvement since surgery. Nothing is worse. No dysuria or gross hematuria. He has no concerns with voiding at this point. 08/26/23: Plan at last year was to follow up in 1 year with a PSA prior.PVR = 11 mL. IPSS = 6. Nocturia 1x/night. No dysuria. No gross hematuria. No new medical issues or surgeries. He states that he gets his PSA with [facility] a few times a year and he states that it's under 1. He also gets a PSA with his annual physical. SH - Never smokerFH - Father = prostate cancer (dx'd in his 60s); no bladder or renal cancer. Tab Gold MD [address], [place], [address], [facility] 08/26/2023 15:25:31
--- OUTSIDE RECORDS SUMMARY | 2025-04-21 00:45 | XMS_ITS | Data Portability ---
Author Organization [facility], [facility] Address [address] [place] [address] Assessment No assessment recorded. Plan of Treatment Reminders Order Date Submit Date Provider Last Modified By Organization Details Last Modified Time Details Appointments None recorded. Lab urinalysis, dipstick 2022 023 [facility], [address] [facility] [address] [facility] [address], [place], [address], 3 15:45:30 urinalysis, microscopic 2022 023 [facility], [address], [address], [place], [address], 3 15:45:33 urinalysis, dipstick 2021 022 [facility], [address] [facility], [address], [place], [address], 2 15:16:48 urinalysis, dipstick 2021 022 [facility], [address], [address], [place], [address], 2 17:11:13 urinalysis, dipstick 2021 022 [facility], [address], [address], [place], [address], 2 14:27:03 culture, urine 2021 022 [facility], [address], [address], [place], [address], 08:53:20 Referral None recorded. Procedures None recorded. Surgeries None recorded. Imaging None recorded. Medication Orders None recorded. Patient TargetsNo targets recorded. Patient Instructions Encounter Date Encounter Id Patient Instructions Last Modified By Organization Details Last Modified Time 04/14/2022 [id number] BPH s/p TURP -Patient passed voiding trial [...] Gold. [email or web address] Not available 04/13/2022 16:13:45 05/16/2022 [id number] BPH/weak stream: He's doing well after the procedure. I'll see him back in 3 months. Not available 05/16/2022 16:34:54 08/20/2022 [id number] BPH/weak stream/frequency: He's doing well and without any changes (worsening) to his voiding since I saw him last. He's getting his PSAs with his PCP office. I recommend that I see him back in 1 year. Not available 08/20/2022 15:06:16 08/26/2023 [id number] BPH/weak stream: He's voiding well since the [...] TUS color -advantus YELLOW yellow Not Available [facility] [address], [place], [address], 04/01/2022 14:27:03 04/01/20 22 04/01/2022 UA DIP CS ADVAN TUS appearance -advantus CLEAR clear Not Available [facility] [address] [facility] [address], [place], [address], 04/01/2022 14:27:03 04/01/20 22 04/01/2022 UA DIP CS ADVAN TUS glucose -advantus NEGATI VE mg/dL negati ve Not Available [facility] [address] [place] [address] [address], [place], [address], 04/01/2022 14:27:03 04/01/20 22 04/01/2022 UA DIP CS ADVAN TUS bilirubin -advantus NEGATI VE negati ve Not Available [facility] [address] [place] [address] [address], [place], [address], 04/01/2022 14:27:03 04/01/20 22 04/01/2022 UA DIP CS ADVAN TUS ketones -advantus TRACE mg/dL negati ve abnormal Not Available [facility] [address] [place] [address] [address], [place], [address], 04/01/2022 14:27:03 04/01/20 22 04/01/2022 UA DIP CS ADVAN TUS sp. gravity -advantus 1.025 1.010- 1.025 Not Available [facility] [address] [place] [address] [address], [place], [address], 04/01/2022 14:27:03 04/01/20 22 04/01/2022 UA DIP CS ADVAN TUS pH -advantus 6.0 5.0-8. 0 Not Available [facility] [address] [place] [address] [address], [place], [address], 04/01/2022 14:27:03 04/01/20 22 04/01/2022 UA DIP CS ADVAN TUS protein -advantus NEGATI VE mg/dL negati ve Not Available [facility] [address] [facility] [address], [place], [address], 04/01/2022 14:27:03 04/01/20 22 04/01/2022 UA DIP CS ADVAN TUS urobilinogen -advantus 1.0 normal Not Available [facility] [address] [facility] [address], [place], [address], 04/01/2022 14:27:03 04/01/20 22 04/01/2022 UA DIP CS ADVAN TUS nitrites -advantus NEGATI VE negati ve Not Available [facility] [address] [place] [address] [address], [place], [address], 04/01/2022 14:27:03 04/01/20 22 04/01/2022 UA DIP CS ADVAN TUS blood -advantus NEGATI VE negati ve Not Available [facility] [address] [place] [address], [place], [address], 04/01/2022 14:27:03 04/01/20 22 04/01/2022 UA DIP CS ADVAN TUS leukocytes -advantus NEGATI VE negati ve Not Available [facility] [address] [place] [address] [address], [place], [address], 04/01/2022 14:27:03 04/01/20 22 04/01/2022 UA DIP CS ADVAN TUS performed by Best Garcia Not Available [facility] [address] [facility] [address], [place], [address], 04/01/2022 14:27:03 04/01/20 22 04/01/2022 UA DIP [...] ----- ----- ----- ----- ---- Not Available [facility] [address] [facility] [address], [address], 04/01/2022 14:27:03 04/01/20 22 04/01/2022 URINE CULTU RE final report Microb iology result s SOURC E Void KNOWN ALLER GIES NKDA TREAT MENT none MEDIA PLATE D AT: Media plate d on 2021 @ 1:24 PM COLON Y COUNT < 10,00 0 cfu/m l RESUL T No Furth er Mathew p Not Available [facility] [address] [facility] [address], [place], [address], 04/03/2022 08:53:20 05/16/20 22 05/16/2022 UA DIP CS ADVAN TUS color -advantus YELLOW yellow Not Available [facility] [address] [facility] [address], [place], [address], 05/16/2022 17:11:12 05/16/20 22 05/16/2022 UA DIP CS ADVAN TUS appearance -advantus CLEAR clear Not Available [facility] [address] [facility] [address], [place], [address], 05/16/2022 17:11:12 05/16/20 22 05/16/2022 UA DIP CS ADVAN TUS glucose -advantus NEGATI VE mg/dL negati ve Not Available [facility] [address] [place] [address], [place], [address], 05/16/2022 17:11:12 05/16/20 22 05/16/2022 UA DIP CS ADVAN TUS bilirubin -advantus NEGATI VE negati ve Not Available [facility] [address] [place] [address], [place], [address], 05/16/2022 17:11:12 05/16/20 22 05/16/2022 UA DIP CS ADVAN TUS ketones -advantus TRACE mg/dL negati ve abnormal Not Available [facility] [address] [place] [address], [place], [address], 05/16/2022 17:11:12 05/16/20 22 05/16/2022 UA DIP CS ADVAN TUS sp. gravity -advantus 1.020 1.010- 1.025 Not Available [facility] [address] [place] [address] [address], [place], [address], 05/16/2022 17:11:12 05/16/20 22 05/16/2022 UA DIP CS ADVAN TUS pH -advantus 6.0 5.0-8. 0 Not Available [facility] [address] [place] [address] [address], [place], [address], 05/16/2022 17:11:12 05/16/20 22 05/16/2022 UA DIP CS ADVAN TUS protein -advantus 30 mg/dL negati ve abnormal Not Available [facility] [address] [place] [address], [place], [address], 05/16/2022 17:11:12 05/16/20 22 05/16/2022 UA DIP CS ADVAN TUS urobilinogen -advantus 0.2 normal Not Available [facility] [address] [place] [address], [place], [address], 05/16/2022 17:11:12 05/16/20 22 05/16/2022 UA DIP CS ADVAN TUS nitrites -advantus NEGATI VE negati ve Not Available [facility] [address] [facility] [address], [place], [address], 05/16/2022 17:11:12 05/16/20 22 05/16/2022 UA DIP CS ADVAN TUS blood -advantus LARGE negati ve abnormal Not Available [facility] [address] [facility] [address], [place], [address], 05/16/2022 17:11:12 05/16/20 22 05/16/2022 UA DIP CS ADVAN TUS leukocytes -advantus LARGE negati ve abnormal Not Available [facility] [address] [facility] [address], [place], [address], 05/16/2022 17:11:12 05/16/20 22 05/16/2022 UA DIP CS ADVAN TUS performed by Maile Dias Not Available [facility] [address] [facility] [address], [place], [address], 05/16/2022 17:11:12 05/16/20 22 05/16/2022 UA DIP [...] ----- ----- ----- ----- ---- Not Available [facility] [address] [place] [address], [place], [address], 05/16/2022 17:11:12 05/16/20 22 05/16/2022 UA MICRO SCOPI C U-WBC 50 - 100 [hpf] 0 - 2 abnormal Not Available [facility] [address] [place] [address], [place], [address], 05/16/2022 17:11:14 05/16/20 22 05/16/2022 UA MICRO SCOPI C U-RBC 2 - 5 [hpf] 0 - 2 abnormal Not Available [facility] [address] [place] [address], [place], [address], 05/16/2022 17:11:14 05/16/20 22 05/16/2022 UA MICRO SCOPI C bacteria Modera te [hpf] negati ve abnormal Not Available [facility] [address] [place] [address], [place], [address], 05/16/2022 17:11:14 05/16/20 22 05/16/2022 UA MICRO SCOPI C squamous epi Negati ve /lpf negati ve,sma ll Not Available [facility] [address] [place] [address], [place], [address], 05/16/2022 17:11:14 08/20/20 22 08/20/2022 UA DIP CS ADVAN TUS color -advantus YELLOW yellow Not Available [facility] [address] [place] [address], [place], [address], 08/20/2022 15:16:48 08/20/20 22 08/20/2022 UA DIP CS ADVAN TUS appearance -advantus CLEAR clear Not Available [facility] [address] [facility] [address], [place], [address], 08/20/2022 15:16:48 08/20/20 22 08/20/2022 UA DIP CS ADVAN TUS glucose -advantus NEGATI VE mg/dL negati ve Not Available [facility] [address] [place] [address], [place], [address], 08/20/2022 15:16:48 08/20/20 22 08/20/2022 UA DIP CS ADVAN TUS bilirubin -advantus NEGATI VE negati ve Not Available [facility] [address] [place] [address], [place], [address], 08/20/2022 15:16:48 08/20/20 22 08/20/2022 UA DIP CS ADVAN TUS ketones -advantus NEGATI VE mg/dL negati ve Not Available [facility] [address] [place] [address], [place], [address], 08/20/2022 15:16:48 08/20/20 22 08/20/2022 UA DIP CS ADVAN TUS sp. gravity -advantus 1.025 1.010- 1.025 Not Available [facility] [address] [place] [address], [place], [address], 08/20/2022 15:16:48 08/20/20 22 08/20/2022 UA DIP CS ADVAN TUS pH -advantus 6.0 5.0-8. 0 Not Available [facility] [address] [place] [address], [place], [address], 08/20/2022 15:16:48 08/20/20 22 08/20/2022 UA DIP CS ADVAN TUS protein -advantus NEGATI VE mg/dL negati ve Not Available [facility] [address] [place] [address], [place], [address], 08/20/2022 15:16:48 08/20/20 22 08/20/2022 UA DIP CS ADVAN TUS urobilinogen -advantus 0.2 normal Not Available [facility] [address] [facility] [address], [place], [address], 08/20/2022 15:16:48 08/20/20 22 08/20/2022 UA DIP CS ADVAN TUS nitrites -advantus NEGATI VE negati ve Not Available [facility] [address] [place] [address], [place], [address], 08/20/2022 15:16:48 08/20/20 22 08/20/2022 UA DIP CS ADVAN TUS blood -advantus NEGATI VE negati ve Not Available [facility] [address] [place] [address], [place], [address], 08/20/2022 15:16:48 08/20/20 22 08/20/2022 UA DIP CS ADVAN TUS leukocytes -advantus NEGATI VE negati ve Not Available [facility] [address] [place] [address], [place], [address], 08/20/2022 15:16:48 08/20/20 22 08/20/2022 UA DIP CS ADVAN TUS performed by YOLIS Yeboah Not Available [facility] [address] [place] [address], [place], [address], 08/20/2022 15:16:48 08/20/20 22 08/20/2022 UA DIP [...] for provi cordell revie w. Not Available [facility] [address] [place] [address], [place], [address], 08/20/2022 15:16:48 08/26/20 23 08/26/2023 UA WITHO UT MICRO - CS URISC AN blood - uriscan TRACE negati ve abnormal Not Available [facility] [address] [place] [address], [place], [address], 08/26/2023 15:45:30 08/26/20 23 08/26/2023 UA WITHO UT MICRO - CS URISC AN bilirubin - uriscan NEGATI VE mg/dL negati ve Not Available [facility] [address] [place] [address] [address], [place], [address], 08/26/2023 15:45:30 08/26/20 23 08/26/2023 UA WITHO UT MICRO - CS URISC AN urobilinogen - uriscan 1.0 mg/dL normal abnormal Not Available [facility] [address] [facility] [address], [place], [address], 08/26/2023 15:45:30 08/26/20 23 08/26/2023 UA WITHO UT MICRO - CS URISC AN ketones - uriscan NEGATI VE mg/dL negati ve Not Available [facility] [address] [facility] [address], [place], [address], 08/26/2023 15:45:30 08/26/20 23 08/26/2023 UA WITHO UT MICRO - CS URISC AN protein - uriscan NEGATI VE mg/dL negati ve Not Available [facility] [address] [place] [address], [place], [address], 08/26/2023 15:45:30 08/26/2008/26/2023 UA WITHO UT MICRO - CS URISC AN nitrites - uriscan NEGATI VE negati ve Not Available [facility] [address] [place] [address], [place], [address], 08/26/2023 15:45:30 08/26/2008/26/2023 UA WITHO UT MICRO - CS URISC AN glucose - uriscan NEGATI VE mg/dL negati ve Not Available [facility] [address] [place] [address] [address], [place], [address], 08/26/2023 15:45:30 08/26/20 23 08/26/2023 UA WITHO UT MICRO - CS URISC AN pH - uriscan 7.00 5.00-9 .00 Not Available [facility] [address] [place] [address] [address], [place], [address], 08/26/2023 15:45:30 08/26/20 23 08/26/2023 UA WITHO UT MICRO - CS URISC AN sp. gravity - uriscan <=1.01 1.01-1 .03 Not Available [facility] [address] [place] [address], [place], [address], 08/26/2023 15:45:30 08/26/20 23 08/26/2023 UA WITHO UT MICRO - CS URISC AN leukocytes - uriscan NEGATI VE negati ve Not Available [facility] [address] [facility] [address], [place], [address], 08/26/2023 15:45:30 08/26/20 23 08/26/2023 UA WITHO UT MICRO - CS URISC AN color - uriscan YELLOW lt. yellow ;yello w Not Available [facility] [address] [facility] [address], [place], [address], 08/26/2023 15:45:30 08/26/20 23 08/26/2023 UA WITHO UT MICRO - CS URISC AN clarity - uriscan CLEAR clear Not Available [facility] [address] [facility] [address], [place], [address], 08/26/2023 15:45:30 08/26/20 23 08/26/2023 UA WITHO [...] for provi cordell revie w. Not Available [facility] [address] [facility] [address], [place], [address], 08/26/2023 15:45:30 08/26/2008/26/2023 UA MICRO SCOPI C U-WBC 0 - 2 [hpf] 0 - 2 Not Available [facility] [address] [facility] [address], [place], [address], 08/26/2023 15:45:33 08/26/2008/26/2023 UA MICRO SCOPI C U-RBC 0 - 2 [hpf] 0 - 2 Not Available [facility] [address] [facility] [address], [place], [address], 08/26/2023 15:45:33 08/26/20 23 08/26/2023 UA MICRO SCOPI C bacteria NEGATI VE [hpf] negati ve Not Available [facility] [address] [facility] [address], [place], [address], 08/26/2023 15:45:33 08/26/2008/26/2023 UA MICRO SCOPI C [...] for provi cordell revie w. Not Available [facility] [address] [facility] [address], [place], [address], 08/26/2023 15:45:33 Result Notes None recorded. Problems Name Problem SNOMED Code Status Onset Date Resolution Date Notes Provider Name and Address Organization Details Recorded Time Slowing of urinary stream 81992540 Active 2021 Tab Gold MD [address] [place] [address],[address], [place], [address], [place] [facility] 2 09:36:57 Lower urinary tract symptoms due to benign prostatic hypertrophy 1928599230741 1 Active 2021 Tab Gold MD [address] [facility],[address], [place], [address], [place] [facility] 2 09:36:57 Increased frequency of urination 153084256 Active 2021 Tab Gold MD [address] [place] [address],[address], [place], [address], [place] [facility] 2 09:36:58 Benign prostatic hyperplasia with outflow obstruction 015606938 Active 2021 Tab Gold MD [address] [place] [address],[address], [place], [address], [place] [facility] 2 15:05:41 Problem Notes None recorded. Procedures Surgical History Date Name Laterality Status Provider Name and Address Organization Details Recorded Time 08/26/20 23 Bladder Scan completed Graciela Barrera [facility] 08/26/2023 15:12:49 08/20/20 22 Bladder Scan completed Elisabeth Porter [facility] 08/20/2022 14:58:51 05/16/20 22 Bladder Scan completed Milvia Oneill [facility] 05/16/2022 16:29:01 04/14/20 22 Fill and Pull/Voiding Trial/TOV completed Richa Smith [facility] 04/14/2022 10:48:57 04/01/20 22 Urine Culture completed Noemí Costello [facility] 04/01/2022 14:20:12 04/01/20 22 Urinalysis completed Noemí Costello [facility] 04/01/2022 14:20:10 02/22/20 22 Cystoscopy- male completed Tab Gold MD [address] [facility],[address], [place], [address], [place] [facility] 02/21/2022 09:36:36 02/22/20 22 Bladder Scan completed Milvia Oneill [facility] 02/21/2022 09:17:13 09/23/20 17 Diagnostic colonoscopy [...] Not Available Not Available BD Regular Bevel [place] 18 gauge x 1 USE FOR DRAWING UP TESTOSTE LAURENCE CYPIONAT E active Not Available Not Available No t Available Hypodermi c [place] 18 gauge x 1 1/2 USE FOR [...] Updated DateTime 04/14/2022 187.96 cm 27 kg/m2 93184.86 g Richa Smith [facility] 04/14/2022 10:33:52 Date Recorded Body height Body mass index (BMI) Body weight Provider Name and Address Organization Details Last Updated DateTime 05/16/2022 187.96 cm 26.8 kg/m2 72554.81 g Timoteo Hernandes [facility] 05/16/2022 16:23:26 Date Recorded Body height Body weight Body mass index (BMI) Provider Name and Address Organization Details Last Updated DateTime 08/20/2022 187.96 cm 45854.50547 15727 g 27 kg/m2 Not Available [facility] Note 08/20/2022 14:44:16 Date Recorded Body mass index (BMI) Body weight Body height Provider Name and Address Organization Details Last Updated DateTime 08/26/2023 27 kg/m2 50545.47364 40734 g 187.96 cm Not Available Health Note [...] Date Was Tobacco Cessation Counseling Provided? 08/20/2022 Information not available 08/20/2022 How Many Years [...] 50 mcg/0.25mL dose 1 completed CLAUDINE Card [facility] 02/21/2022 09:14:30 Tdap 0 completed CLAUDINE Card [facility] 02/21/2022 09:14:30 Td (adult), 2 Lf tetanus toxoid, preservative free, adsorbed 1 completed Milvia Oneill parul [facility] 02/21/2022 09:14:30 SARS-COV-2 (COVID-19) vaccine, UNSPECIFIED 1 completed Not Available [facility] 08/20/2022 14:37:28 SARS-COV-2 (COVID-19) vaccine, UNSPECIFIED 2 completed Not Available [facility] 08/20/2022 14:37:28 SARS-COV-2 (COVID-19) vaccine, UNSPECIFIED 3 completed Not Available Health Note 08/22/2023 19:20:17 Past Encounters Encounter ID Performer Location Encounter Start Date Encounter Closed Date Diagnosis/Indication Diagnosis SNOMED-CT Code Diagnosis ICD10 Code Diagnosis Note [id number] MD Ahmet Sellers [address] [place] [address] 02/21/2022 09:07:00 02/21/2022 10:35:49 Increased frequency of urination 748760765 R35.0 Lower urin abbie tract symptoms due to benign prostatic hypertrophy 4598648288 9101 N40.1 Slowing of urinary stream 20756702 R39.12 [id number] MD Ahmet Sellers [address] [place] [id number] 04/01/2022 14:16:20 04/01/2022 14:22:05 Benign prostatic hyperplasia with outflow obstruction 036726985 N40.1 [id number] JEANNINE Payne [address] [place] [address] 04/14/2022 10:32:01 04/14/2022 11:23:58 Lower urinary tract symptoms due to benign prostatic hypertrophy 8164216336 9101 N40.1 [id number] MD Ahmet Sellers [address] [place] [id number] 05/16/2022 16:21:43 05/16/2022 16:37:49 Benign prostatic hyperplasia with outflow obstruction 578029563 N40.1 Slowing of urinary stream 50712211 R39.12 [id number] MD Akira [facility] [address] [place] [address],[address] [place] [address] 08/20/2022 14:36:02 08/20/2022 15:09:07 Benign prostatic hyperplasia with outflow obstruction 375843290 N40.1 Slowing of urinary stream 31449391 R39.12 Increased frequency of urination 343803367 R35.0 [id number] MD Izabella [facility] [address] [place] [address],[address] [place] [address] 08/26/2023 14:59:14 08/26/2023 15:44:21 Benign prostatic hyperplasia with outflow obstruction 551447869 N40.1 Slowing of urinary stream 41608860 R39.12 Health Concerns Section Related Observation LastModified by Organization Detai ls LastModified Time None Recorded Concern Status LastModified by Organization Details LastModified Time None Recorded Advance Directives Directive None Recorded Payers Insurance Date Sequence Insurance Name Policy Number Policy Doherty Covered Member ID Doherty Member ID Guarantor Name 09/14/2023 1 [place] [id number] Allen Spencer [id number] Allen Spencer Notes Date Note Type Note Provider Name and Address Organization Details Recorded Time 04/14/2022 text/html 56 year old male here for voiding trial s/p TURP on 04/11/22. He is doing well overall, no new concerns. Denies abdominal pain. Pathology: processing Rhonda Trejo PA-C [id number] [facility],[address], [place], [address], [facility] 04/14/2022 10:53:20 05/16/2022 text/html 02/21/22: Anxiety [...] states that he had a PSA via [facility] in December 2021 and he states [...] bladder or renal cancer. Tab Gold MD [address] [place] [address],[address], [address], [facility] 05/16/2022 16:35:13 08/20/2022 text/html 02/21/22: Anxiety [...] states that he had a PSA via [facility] in December 2021 and he states [...] or renal cancer. Tab Gold MD [address] [facility],[address], [place], [address], [facility] 08/20/2022 15:06:40 08/26/2023 text/html 02/21/22: Anxiety [...] states that he had a PSA via [facility] in December 2021 and he states [...] states that he gets his PSA with [facility] a few times a year and he states that it's under 1. He also gets a PSA with his annual physical. SH - Never smokerFH - Father = prostate cancer (dx'd in his 60s); no bladder or renal cancer. Tab Gold MD [address] [facility],[address], [place], [address], [facility] 08/26/2023 15:25:31
--- OUTSIDE RECORDS SUMMARY | 2025-04-21 00:45 | XMS_ITS | Clinical Summary ---
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 Active rosuvastatin (CRESTOR) 5 mg tablet Take 5 mg by mouth at bedtime. Active tadalafiL (CIALIS) 5 mg tablet Take 5 mg by mouth once daily if needed for Erectile Dysfunction. Take 30 minutes before sexual activity. Active omeprazole (PRILOSEC) 20 mg Delayed-Release capsule Take 20 mg by mouth once daily. Active psyllium seed, with sugar, (FIBER ORAL) Take 1 Capsule by mouth once daily. Active Active Problems Problem Noted Date Diagnosed Date Other anxiety states 08/18/2007 EXAMINATION, ROUTINE MEDICAL 02/12/2000 Resolved Problems Problem Noted Date Diagnosed Date Resolved Date PAIN IN JOINT, UNSPECIFIED SITE 08/31/2001 08/18/2007 Overview (08/18/2007): knees occasionally Panic disorder without agoraphobia 05/01/2000 08/18/2007 Immunizations Immunization Administration Dates Next Due COVID-19 vaccine (Moderna 100mcg/0.5mL) PF, MDV 08/11/2023,11/02/2021 Covid-19 Vaccine (Unspecified) 11/16/2021 Td (Age >=7 Years) 11/02/2000,02/12/2000 Tdap 05/13/2020,11/20/2009 Tuberculin (PPD) 11/30/2000,10/06/2000 Family History Medical History Relation Name Comments Cancer-prostate Father Good Health Mother Relation Name Status Comments Father Mother Social History Tobacco Use Types Packs/Day Years Used Date Smoking Tobacco: Never Smokeless Tobacco: Former Chew Quit: 04/10/2012 Tobacco Cessation:Counseling Given: Not Answered Alcohol Use Standard Drinks/Week Comments Yes 0 (1 standard drink = 0.6 oz pur e alcohol) few drinks a week PHQ-2 Answer Date Recorded PHQ-2 TOTAL SCORE 0 05/12/2024 Social Connections Answer Date Recorded Do you often feel lonely or isolated from those around you? 0 05/12/2024 Financial Resource Strain Answer Date R ecorded Difficulty of Paying Living Expenses 3 05/12/2024 Difficulty of Paying Living Expenses Not on file 05/12/2024 Food Insecurity Answer Date Recorded Do you worry your food will run out before you are able to buy more? 1 05/12/2024 Transportation Needs Answer Date Record ed Does lack of transportation keep you from medica l appointments? 1 05/12/2024 Does lack of transportation keep you from work, meetings or getting things that you need? 1 05/12/2024 Housing Stability Answer Date Recorded What is your housing situation today? 1 05/12/2024 Utilities Answer Date Recorded Do you have trouble paying f or utilities (for example, heat, electricity, water, phone)? 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 file Not on file Not on file Obstetrics History Last Filed Vital Signs Vital Sign Reading Time Taken Comments Blood Pressure 128/78 05/12/2024 8:01 AM CDT Pulse 67 05/12/2024 8:01 AM CDT Temperature 36.8 C (98.2 F) 04/12/2022 8:43 AM CDT Respiratory Rate 16 04/12/2022 8:43 AM CDT Oxygen Saturation 97% 05/12/2024 8:01 AM CDT Inhaled Oxygen Concentration - - Weight 94.4 kg (208 lb 1.6 oz) 05/12/2024 8:01 A M CDT Height 188 cm (6' 2) 05/12/2024 8:01 AM CDT Body Mass Index 26.72 05/12/2024 8:01 AM CDT Plan of Treatment Health Maintenance Due Date Last Done Comments HIV for age 15-65 1981 Hepatitis C screening for ag e 18-79 1984 Hepatitis B series for 19+ ( 1 of 3 - 19+ 3-dose series) 1985 Colonoscopy through age 75 2011 Lipids for age 45-75 2011 02/12/2000, 02/12/20 00 Pneumococcal series for age 50+ (1 of 1 - PCV) 2016 Zoster (shingles) series for age 50+ (1 of 2) 2016 COVID-19 vaccine series (2023- season) 2024 08/11/2023, 11/16/2021, 11/02/2021 BMI (ht and wt on same day) for age 18+ 05/12/2025 05/12/2024 Depression screening for age 12+ 05/12/2025 05/12/20 24 Influenza Vaccine (Season Ended) 2025 Tetanus booster 05/13/2030 05/13/2020, 11/02, 11/02/2000, Additional history exists Tdap Completed 05/13/2020, 11/20/2009 Procedures Procedure Name Priority Date/Time Associated Diagnosis Comments CHOLESTEROL,TOTAL Routine 02/12/2000 8:5 7 AM CDT from Last 3 Months or Most Recently Relevant to Health Maintenance Results * CHOLESTEROL,TOTAL (02/12/2000 8:57 AM CDT) CHOLESTEROL,TOT AL 170 110 - 199 mg/dL 02/12/2000 8:57 AM CDT Narrative 04/11/2004 11:45 AM CDT Ordered by an unspecified provider. us Other Clinical Staff CHEMISTRY Final Resul t from Last 3 Months or Most Recently Relevant to Health Maintenance Insurance [facility] Advance Directives * Full Code (Latest Code Status on File) Date Activated Date Inactivated Comments 04/11/2022 9:57 AM 04/12/2022 12:51 PM Should be d iscussed pre operatively with anesthesia or surgeon Question Answer Comments Code Status Discussion: Not Discussed Care Teams Metal Mockup Maker Relationship Specialty Start Date End Date [facility] [place] PCP - General 06/10/07
== END 2025-04-20 08:02 | disposition home or self-care (01) ==
LOC: MRI 08:02
PROVIDERS: PCP Physician Assistant Medical; Visit Provider Physician Assistant Medical
DX: M25.532 Pain in left wrist (principal); S66.812A Strain of other specified muscles, fascia and tendons at wrist and hand level, left hand, initial encounter
CPT/HCPCS: 73221